=== PATIENT | female | born 1945 | race Caucasian/White ===

== ENCOUNTER 2017-12-27 13:30 | Outpatient (CLI) | payer MEDICARE | END 2017-12-27 14:10 | disposition home or self-care (01) | LOC: SLEEP 13:30 | PROVIDERS: ATTEND Family Medicine | DX: G47.10 Hypersomnia, unspecified (principal); G47.52 REM sleep behavior disorder; R06.83 Snoring ==

== ENCOUNTER → 2018-07-19 | Outpatient (CLI) | payer MEDICARE | LOC: LAB 09:54 | PROVIDERS: ATTEND Nurse Practitioner Family | DX: N83.209 Unspecified ovarian cyst, unspecified side (principal); Z78.0 Asymptomatic menopausal state | CPT/HCPCS: 36415; 86304 ==

== ENCOUNTER → 2018-07-23 | Outpatient (CLI) | payer MEDICARE ==
[~2018-07-23] MED LIST: HOLD METFORMIN - RECEIVED CONTRAST 20 ML VIAL IV SCH; IOHEXOL 350 MG/ML 100 ML (OMNIPAQUE 350) VIAL IV ONE; NS 250 ML (IVPB) BAG IV ONE
--- NOTE | 2018-07-23 10:33 | Diagnostic Imaging Report ---
PROCEDURE: CT abdomen and pelvis with and without contrast. TECHNIQUE: Precontrast acquisitions were acquired through the abdomen and pelvis. Multiple contiguous axial images were obtained through the abdomen and pelvis after the administration of intravenous contrast. Auto Exposure Controls were utilized during the CT exam to meet ALARA standards for radiation dose reduction. INDICATION: Suspicion for ovarian cysts. FINDINGS: There are multiple bilateral unilocular adnexal cysts, presumed ovarian. The largest on the left measures a long axis of 2.9 cm with the largest on the right measuring 3.5 cm. The uterus appears unremarkable. The urinary bladder is normal. There is no abdominal/pelvic ascites. No omental infiltration. No lymphadenopathy. No bowel, biliary, or urinary tract obstruction. A cyst in the right hepatic lobe at the dome posteriorly is present. The liver is otherwise unremarkable aside from a small left lobe cyst. There is no biliary ductal abnormality. The adrenals, spleen, and pancreas are all unremarkable. The aortoiliac and mesenteric vessels are patent and nonaneurysmal. The appendix is normal. No ascites, abscess, hematoma, or other fluid collection. No pneumatosis or free gas. The lung bases are nonacute. IMPRESSION: Simple appearing bilateral ovarian cysts with normal appendix and unobstructed urinary tracts. No inflammatory process or acute abnormalities. Benign hepatic cysts. Dictated by: Dictated on workstation # [id number]
== END ==
LOC: RAD 07:31
PROVIDERS: ATTEND Obstetrics & Gynecology
DX: N83.201 Unspecified ovarian cyst, right side (principal); N83.202 Unspecified ovarian cyst, left side; Z78.0 Asymptomatic menopausal state
CPT/HCPCS: 74178

== ENCOUNTER → 2018-11-01 | Outpatient (CLI) | payer MEDICARE ==
[~2018-11-01] MED LIST changes: +CATHETER FLUSH 10 ML SYR IV PRN; +NS 100 ML (IVPB) BAG IV ONE; -NS 250 ML (IVPB) BAG IV ONE
--- NOTE | 2018-11-01 09:45 | Diagnostic Imaging Report ---
PROCEDURE: CT abdomen and pelvis with and without contrast. TECHNIQUE: Precontrast acquisitions were acquired through the abdomen and pelvis. Multiple contiguous axial images were obtained through the abdomen and pelvis after the administration of intravenous contrast. Auto Exposure Controls were utilized during the CT exam to meet ALARA standards for radiation dose reduction. INDICATION: Followup ovarian cysts. COMPARISON: 07/23/2018 FINDINGS: Included portions of the lung bases are clear. CT abdomen: Benign appearing hepatic cyst is again identified within the dome of segment VII of the liver. A few other scattered similar-appearing subcentimeter foci are also noted scattered throughout the remainder of the liver, but are too small to adequately characterize. These, however, are stable compared to 07/23/2018. Benign left renal cyst is also noted. Otherwise, the kidneys, adrenal glands, spleen, and pancreas have a normal CT appearance. Small bowel loops are nondistended. Normal appendix is identified. There is no loculated fluid collection, free fluid, nor free air within the abdomen. No abnormal mesenteric or retroperitoneal adenopathy is seen. Osseous structures show no acute abnormalities. CT pelvis: Multiple bilateral ovarian cysts are identified. Largest on the right measures 2.4 x 2.6 cm. This may be slightly increased in size compared to 2.5 x 2.7 cm previously. Largest on the left measures 2.8 x 2.6 cm. This too is slightly increased in size compared to 2.6 x 2.4 cm previously. There may be a new exophytic cyst arising from the anterior margins of the left ovary as well. Potentially, the cyst may have been present previously and obscured by small bowel loops. Urinary bladder is grossly unremarkable. There is no loculated fluid collection, free fluid, nor free air within the pelvis. No abnormal lymph nodes are seen. Osseous structures show no acute abnormalities. IMPRESSION: 1. Multiple bilateral ovarian cysts as described above. In summary, dominant cyst bilaterally appears slightly increased in size and there may be a new exophytic cyst on the left. Further evaluation with pelvic sonogram is recommended, as this would provide better detail in terms of potential complexity to the cystic structures. 2. Benign-appearing left renal and hepatic cyst. A few other subcentimeter similar-appearing hepatic foci are also noted and may be on the basis of small cysts as well, but are too small to adequately characterize based on this exam. Dictated by: Dictated on workstation # [id number]
== END ==
LOC: RAD 08:25
PROVIDERS: ATTEND Obstetrics & Gynecology
DX: N83.201 Unspecified ovarian cyst, right side (principal); N83.202 Unspecified ovarian cyst, left side; N28.1 Cyst of kidney, acquired; K76.89 Other specified diseases of liver
CPT/HCPCS: 74178

== ENCOUNTER 2018-11-19 09:45 | Outpatient (CLI) | payer MEDICARE ==
[~2018-11-19] VITALS: Ht 160 cm; Wt 81.0 kg
[2018-11-19] MEDS ORDERED: DICL75TA2 PO (10:01)
[2018-11-19 10:04] VITALS: BP 116/64
[2018-11-19 11:03] LABS: BASOPHILS % (AUTO) 0 % (0-10); EOSINOPHILS # (AUTO) 0.2 10^3/uL (0.0-0.3); EOSINOPHILS % (AUTO) 5 % (0-10); HEMATOCRIT 38 % (35-52); HEMOGLOBIN 12.8 G/DL (11.5-16.0); LYMPHOCYTES # (AUTO) 1.2 X 10^3 (1.0-4.0); LYMPHOCYTES % (AUTO) 23 % (12-44); MEAN CORPUSCULAR HEMOGLOBIN 32 PG (25-34); MEAN CORPUSCULAR HGB CONC 33 G/DL (32-36); MEAN CORPUSCULAR VOLUME 94 FL (80-99); MEAN PLATELET VOLUME 10.2 FL (7.4-10.4); MONOCYTES # (AUTO) 0.4 X 10^3 (0.0-1.0); MONOCYTES % (AUTO) 9 % (0-12); NEUTROPHILS # (AUTO) 3.2 X 10^3 (1.8-7.8); NEUTROPHILS % (AUTO) 63 % (42-75); PLATELET COUNT 337 10^3/uL (130-400); RED CELL DISTRIBUTION WIDTH 12.7 % (10.0-14.5)
[2018-11-19] MEDS ORDERED: [UNRECOGNIZED DRUG - CODE] PO (11:31)
[2018-11-19] MEDS ORDERED: AMLO2.5T4 PO (11:31)
[2018-11-19] MEDS ORDERED: ALPR0.254 PO (11:31)
[2018-11-19] MEDS ORDERED: THYR15TA PO (11:31)
[2018-11-19] MEDS ORDERED: MAGN400O7 PO (11:31)
[2018-11-19] MEDS ORDERED: ATOR40TA70 PO (11:31)
[2018-11-19] MEDS ORDERED: UBID100C44 PO (11:31)
[2018-11-19] MEDS ORDERED: BENA5TAB3 PO (11:31)
[2018-11-19] MEDS ORDERED: OMEG1CAP PO (11:31)
[2018-11-19] MEDS ORDERED: ERGO400C PO (11:31)
[2018-11-19] MEDS ORDERED: ASPI-586 PO (11:31)
[2018-11-19] MEDS ORDERED: CETI10CA PO (11:31)
== END 2018-11-19 14:16 | disposition home or self-care (01) ==
LOC: PREOP 09:45
PROVIDERS: ATTEND Obstetrics & Gynecology
DX: Z01.812 Encounter for preprocedural laboratory examination (principal); N83.201 Unspecified ovarian cyst, right side; N83.202 Unspecified ovarian cyst, left side; D25.9 Leiomyoma of uterus, unspecified
CPT/HCPCS: 36415; 85025; 86850; 86900; 86901; 87081

== ENCOUNTER → 2019-05-08 | Outpatient (CLI) | payer MEDICARE ==
[~2019-05-08] MED LIST changes: +ALPR0.254 PO; +AMLO2.5T4 PO; +ASPI-586 PO; +ATOR40TA70 PO; +BENA5TAB3 PO; +CETI10CA PO; +DICL75TA2 PO; +DOCU100C37 PO; +ERGO400C PO; +HYDR-34 PO; +IBUP-844 PO; +MAGN400O7 PO; +OMEG1CAP PO; +SIME80TA16 PO; +THYR15TA PO; +UBID100C44 PO; +[UNRECOGNIZED DRUG - CODE] PO
[2019-05-08 13:14] LABS: HEMOGLOBIN 13.2 G/DL (11.5-16.0); MEAN PLATELET VOLUME 9.6 FL (7.4-10.4); RED CELL DISTRIBUTION WIDTH 13.2 % (10.0-14.5); WHITE BLOOD COUNT 10.5 10^3/uL (4.3-11.0)
[2019-05-08 13:33] LABS: ALANINE AMINOTRANSFERASE 21 U/L (0-55); ALBUMIN 4.6 GM/DL (3.2-4.5); ALKALINE PHOSPHATASE 78 U/L (40-136); BILIRUBIN,TOTAL 0.3 MG/DL (0.1-1.0); BUN/CREATININE RATIO 26; CALCIUM 10.4 MG/DL (8.5-10.1); CARBON DIOXIDE 19 MMOL/L (21-32); CHLORIDE 105 MMOL/L (98-107); CREATININE SERUM 0.88 MG/DL (0.60-1.30); GFR ESTIMATED > 60; GLUCOSE 96 MG/DL (70-105); POTASSIUM 4.5 MMOL/L (3.6-5.0); SODIUM 138 MMOL/L (135-145); TOTAL PROTEIN 8.2 GM/DL (6.4-8.2)
--- NOTE | 2019-05-08 14:31 | Diagnostic Imaging Report ---
PROCEDURE: CT chest with and without contrast. TECHNIQUE: Multiple contiguous axial images were obtained through the chest before and after administration of intravenous contrast. Auto Exposure Controls were utilized during the CT exam to meet ALARA standards for radiation dose reduction. INDICATION: Hemoptysis. COMPARISON: CT of the abdomen and pelvis dated July 23, 2018. FINDINGS: No significant adenopathy within the chest. No aneurysmal dilatation or dissection of the thoracic aorta. The heart is at the upper limits of normal in size. Small pericardial effusion. Small left pleural effusion. No significant right pleural effusion. No pneumothorax. Dense and ground-glass opacification is noted within the posterior and inferior left lower lobe. Calcified granuloma within the right upper lobe. The trachea is patent. Filling defects are identified within segmental and subsegmental branches of the left lower lobe pulmonary artery. These branches are seen coursing to the region of opacification within the inferior and posterior left lower lobe. Hepatic cysts and additional subcentimeter hepatic hypodensities are too small to completely characterize are again identified. 1 cm nodule within the left adrenal gland is again identified and unchanged since July 2018. Partially visualized upper abdomen is otherwise unremarkable. No acute osseous abnormality mild scattered osseous degenerative changes. IMPRESSION: Segmental and subsegmental pulmonary emboli within the left lower lobe. Focal consolidation within the posterior and inferior aspects of the left lower lobe. This is within the region of the pulmonary emboli. Therefore, this may relate to a developing pulmonary infarction. Infiltrate such as pneumonia felt less likely. Recommend radiographic follow-up to ensure clearance. Small left pleural effusion. Stable tiny indeterminate left adrenal gland nodule. Additional findings as above. Findings discussed with Dr. Roach at 1427 hours on May 08, 2019. Dictated by: Dictated on workstation # [id number]
== END ==
LOC: RAD 12:57
PROVIDERS: ATTEND Family Medicine
DX: I26.99 Other pulmonary embolism without acute cor pulmonale (principal); J90 Pleural effusion, not elsewhere classified; K76.89 Other specified diseases of liver; R04.2 Hemoptysis
CPT/HCPCS: 36415; 71270; 80053; 85027

== ENCOUNTER → 2019-05-09 | Outpatient (CLI) | payer MEDICARE ==
[~2019-05-09] MED LIST changes: -CATHETER FLUSH 10 ML SYR IV PRN; -HOLD METFORMIN - RECEIVED CONTRAST 20 ML VIAL IV SCH; -IOHEXOL 350 MG/ML 100 ML (OMNIPAQUE 350) VIAL IV ONE; -NS 100 ML (IVPB) BAG IV ONE
--- NOTE | 2019-05-09 15:00 | Diagnostic Imaging Report ---
PROCEDURE: US Venous Lower Ext Mati. TECHNIQUE: Multiple real-time grayscale images were obtained over the lower extremities in various projections, bilaterally. Additional duplex Doppler and color Doppler images were also obtained. INDICATION: Pulmonary embolism. FINDINGS: There is no evidence of right or left lower extremity DVT. Both lower extremity deep venous systems show normal compressibility with normal response to augmentation and Valsalva. No fluid collection or mass is detected. IMPRESSION: No evidence of right or left lower extremity DVT. Dictated by: Dictated on workstation # [id number]
== END ==
LOC: RAD 12:59
PROVIDERS: ATTEND Family Medicine
DX: I26.99 Other pulmonary embolism without acute cor pulmonale (principal)
CPT/HCPCS: 93970

== ENCOUNTER → 2019-06-19 | Outpatient (CLI) | payer MEDICARE ==
[~2019-06-19] MED LIST changes: +CATHETER FLUSH 10 ML SYR IV PRN; +HOLD METFORMIN - RECEIVED CONTRAST 20 ML VIAL IV SCH; +IOHEXOL 350 MG/ML 100 ML (OMNIPAQUE 350) VIAL IV ONE; +NS 100 ML (IVPB) BAG IV ONE
--- NOTE | 2019-06-19 10:43 | Diagnostic Imaging Report ---
PROCEDURE: CT angiography of the chest with contrast. TECHNIQUE: Multiple contiguous axial images were obtained through the chest after uneventful bolus administration of intravenous contrast. 3D reconstructed CTA MIP acquisitions were also performed. Auto Exposure Controls were utilized during the CT exam to meet ALARA standards for radiation dose reduction. INDICATION: Pulmonary emboli, follow-up exam COMPARISON: 05/08/2019 FINDINGS: No significant adenopathy within the chest. No aneurysmal dilatation or dissection of the thoracic aorta. Small pericardial effusion, similar to the prior examination. Small left pleural effusion, improved since the prior examination. No significant right pleural effusion. No pneumothorax. Calcified granuloma within the right lung. Pleural-based dense consolidation within the posterior and inferior aspect of the left lower lobe is again identified. This measures 3.9 x 0.9 cm, which has decreased in size since the prior examination. However, this now appears more dense than prior exam. On the sagittal images, this region appears wedge-shaped. The lungs are otherwise clear of focal pulmonary opacity. Previously noted filling defects within the left lower lobe pulmonary arteries appear improved though not completely resolved. In particular, persistent opacities are noted within subsegmental branches of the left lower lobe extending towards the dense consolidation. No new filling defect within the pulmonary arteries. Hepatic cysts are again identified. Subcentimeter left adrenal gland nodule is present, though not significantly changed since July 2018. No acute osseous abnormality with scattered osseous degenerative changes. IMPRESSION: Significantly improved though not completely resolved left lower lobe pulmonary emboli with residual emboli within subsegmental branches of the left lower lobe. Previously noted consolidation within the left lower lobe has decreased in size since the prior examination though appears more dense. This is felt related to a pulmonary infarction. Improved tiny left pleural effusion. Stable small pericardial effusion. Stable tiny left adrenal gland nodule. Additional stable findings as above. Dictated by: Dictated on workstation # [id number]
== END ==
LOC: RAD 08:50
PROVIDERS: ATTEND Family Medicine
DX: I26.99 Other pulmonary embolism without acute cor pulmonale (principal); J90 Pleural effusion, not elsewhere classified; E27.9 Disorder of adrenal gland, unspecified
CPT/HCPCS: 71275

== ENCOUNTER → 2019-10-27 | Outpatient (CLI) | payer MEDICARE ==
[~2019-10-27] MED LIST changes: -CATHETER FLUSH 10 ML SYR IV PRN
[2019-10-27 09:08] LABS: BUN/CREATININE RATIO 30; CREATININE SERUM 0.83 MG/DL (0.60-1.30); GFR ESTIMATED > 60
--- NOTE | 2019-10-27 11:13 | Diagnostic Imaging Report ---
PROCEDURE: CT chest with and without contrast. TECHNIQUE: Multiple contiguous axial images were obtained through the chest before and after administration of intravenous contrast. Auto Exposure Controls were utilized during the CT exam to meet ALARA standards for radiation dose reduction. INDICATION: Pulmonary embolism, follow-up. COMPARISON: Correlation is made with prior CT chest from 06/19/2019. FINDINGS: No axillary lymphadenopathy is detected. No definite mediastinal or hilar lymphadenopathy is identified. Trace pericardial fluid is present. No pleural effusion is identified. Evaluation of the pulmonary arterial system is somewhat limited due to non-CT angiography protocol. This does limit evaluation of the more peripheral pulmonary arteries. The central pulmonary arteries including a central, lobar and segmental branches appear to be patent. There may be some persistent emboli within the very small branches to the left lower lobe medially, previously seen. This is present within very small pulmonary artery branches in the medial aspect of the right lower lobe as well. The area of parenchymal consolidation and probable pulmonary infarct involving the posterior left lower lobe has significantly improved. This area now measures approximately 2.1 x 1.2 cm compared with 3.9 x 0.9 cm. No new parenchymal abnormality is detected. Upper abdomen does show some low densities within the liver which are stable and suggestive of cysts. IMPRESSION: Limited study for the evaluation of the pulmonary arterial system due to non-CT angiography protocol. No central or lobar thromboembolism is seen. There may be some continued emboli within very small pulmonary arterial branches in the lower lobes bilaterally. However, area of probable pulmonary infarct in the left lower lobe medially has significantly decreased in size. No new abnormality is detected. Dictated by: Dictated on workstation # [id number]
== END ==
LOC: RAD 09:15
PROVIDERS: ATTEND Nurse Practitioner Family
DX: I26.99 Other pulmonary embolism without acute cor pulmonale (principal)
CPT/HCPCS: 36415; 71270; 82565; 84520

== ENCOUNTER → 2020-01-08 | Outpatient (CLI) | payer MEDICARE ==
[~2020-01-08] MED LIST changes: +ALPR.25T PO; -ALPR0.254 PO; -HOLD METFORMIN - RECEIVED CONTRAST 20 ML VIAL IV SCH; -IOHEXOL 350 MG/ML 100 ML (OMNIPAQUE 350) VIAL IV ONE; -NS 100 ML (IVPB) BAG IV ONE
--- NOTE | 2020-01-08 13:07 | Diagnostic Imaging Report ---
INDICATION: Bilateral hip pain. TIME OF EXAM: 10:56 AM. TECHNIQUE: An AP view of the pelvis and multiple views of the bilateral hips were obtained. FINDINGS: The femoroacetabular alignment is normal bilaterally. There is significant osteoarthritic change to the right hip with complete loss of the superior joint space. The right femoral head and neck are intact. The left hip shows only mild superior joint space narrowing. The femoral head and neck are intact. There is a large dystrophic calcification projected just cephalad to the greater trochanter on the left. No fractures are seen. The rami are intact. IMPRESSION: Significant osteoarthritic change of the right hip. No acute bony abnormality is detected. Dictated by: Dictated on workstation # [id number]
== END ==
LOC: RAD 10:38
PROVIDERS: ATTEND Family Medicine
DX: M25.552 Pain in left hip (principal); M16.11 Unilateral primary osteoarthritis, right hip
CPT/HCPCS: 73523

== ENCOUNTER 2020-04-07 05:39 | Outpatient (RCR) | payer MEDICARE ==
[~2020-04-07] VITALS: Ht 158 cm; Wt 81.8 kg
[~2020-04-07 05:39] MED LIST changes: +ASPI-999 PO; +CHOL10002 PO; +CYAN25006 SL; +CYCL1DRO OU; +LEVO25CA4 PO; +MULT-1029 PO; +RIVA20TA PO; +SPIR25TA5 PO
== END 2020-04-07 14:00 | disposition home or self-care (01) ==
LOC: PREOP 05:39
PROVIDERS: ATTEND Specialist
DX: Z01.812 Encounter for preprocedural laboratory examination (principal); H25.12 Age-related nuclear cataract, left eye; Z20.822 Contact with and (suspected) exposure to COVID-19
CPT/HCPCS: 87635

== ENCOUNTER 2020-04-09 06:15 | Day surgery (SDC) | payer MEDICARE ==
[~2020-04-09] VITALS: Ht 158 cm; Wt 81.0 kg
[2020-04-09] MEDS ORDERED: LIDOCAINE PF 1% 2 ML VIAL IR PRN (06:30)
[2020-04-09] MEDS ORDERED: MOXIFLOXACIN OPHTH SOLN 5 MG/ML 0.3 ML SYRINGE OP ONE (06:30)
[2020-04-09] MEDS ORDERED: POVIDONE (BETADINE) OPHTH SOLN 5% 30 ML OP ONE (06:30)
[2020-04-09] MEDS ORDERED: TIMOLOL MALEATE 0.5% 5 ML (TIMOPTIC) BTL OU PRN (06:30)
[2020-04-09 06:37] VITALS: BP 134/71
[2020-04-09] MEDS: TETRACAINE 0.5% OPHTH SOLN 4 ML BTL (SINGLE DOSE ONLY) OU PRN ×4 (06:46→07:00)
[2020-04-09] MEDS ORDERED: MIDAZOLAM 2 MG/2 ML (VERSED) VIAL ONE (06:47)
[2020-04-09] MEDS: PHENYLEPHRINE 10% OPHTH (NEO-SYN) 5 ML BTL OU SCH ×3 (06:54→07:07)
[2020-04-09] MEDS: TROPICAMIDE 1% OPH SOLN (MYDRIACYL) 15 ML BTL OP SCH ×3 (06:55→07:07)
--- NOTE | 2020-04-09 07:22 | Ophthalmologist Pre-Op Note ---
Pre-Operative Progress Note H&P Reviewed The H&P was reviewed, patient examined and no changes noted. Date H&P Reviewed: Apr 09, 2020 Time H&P Reviewed: 07:22 Pre-Op Dx Cataract, Left Eye LAURA CERNA MD Apr 09, 2020 07:22
[2020-04-09] MEDS ORDERED: acetaZOLAMIDE ER 500 MG CAP (DIAMOX SEQUELS) PO ONE (07:30)
--- NOTE | 2020-04-09 07:45 | Ophthalmology Operative Report ---
Cataract removal/placement IOL PREOPERATIVE DIAGNOSIS: Cataract Left Eye POSTOPERATIVE DIAGNOSIS: Cataract Left Eye PROCEDURE: Cataract removal and placement of posterior chamber implant, left eye SURGEON: Kamlesh Cerna ANESTHESIA: Topical with sedation COMPLICATIONS: None ESTIMATED BLOOD LOSS: Minimal DESCRIPTION OF PROCEDURE: After proper informed consent was obtained, the patient, a 74 female, was taken to the Operating Room and the left eye was anesthetized with tetracaine. The left eye was then prepped and draped in the usual manner. A wire lid speculum was placed. A paracentesis was made at the left hand position. Preservative free lidocaine was injected into the anterior chamber followed by viscoelastic. A clear corneal incision was made in the temporal position. A capsulorrhexis was preformed and the central nuclear and cortical material were removed. The posterior capsule was polished and an Viral 16.5 AU00T0 was placed into the capsular bag. The residual viscoelastic was aspirated and balanced saline solution was injected into the anterior chamber. Moxifloxacin was injected into the anterior chamber. The wound was checked and found to be water tight. The patient tolerated the procedure well without complications. KAMLESH CERNA MD Apr 09, 2020 07:45
[2020-04-09 07:55] VITALS: BP 128/87
--- NOTE | 2020-04-09 10:54 | Anesthesia-General Post-Op ---
MAC Patient Condition Mental Status/LOC: Same as Preop Cardiovascular: Satisfactory Nausea/Vomiting: Absent Respiratory: Satisfactory Pain: Controlled Complications: Absent Post Op Complications Complications None Follow Up Care/Instructions Patient Instructions None needed. Anesthesiology Discharge Order Discharge Order Patient is doing well, no complaints, stable vital signs, no apparent adverse anesthesia problems. No complications reported per nursing. JUAN C HUNTLEY CRNA Apr 09, 2020 10:54
== END 2020-04-09 07:55 | disposition home or self-care (01) ==
LOC: SDC 06:15
PROVIDERS: ATTEND Specialist
DX: H25.12 Age-related nuclear cataract, left eye (principal); I10 Essential (primary) hypertension; G47.33 Obstructive sleep apnea (adult) (pediatric); F41.9 Anxiety disorder, unspecified; K21.9 Gastro-esophageal reflux disease without esophagitis; E03.9 Hypothyroidism, unspecified; Z79.899 Other long term (current) drug therapy
CPT/HCPCS: 66984; V2632

== ENCOUNTER 2020-04-21 05:40 | Outpatient (RCR) | payer MEDICARE | END 2020-04-21 09:33 | disposition home or self-care (01) | LOC: PREOP 05:40 | PROVIDERS: ATTEND Specialist | DX: Z01.812 Encounter for preprocedural laboratory examination (principal); H25.11 Age-related nuclear cataract, right eye; Z20.822 Contact with and (suspected) exposure to COVID-19 | CPT/HCPCS: 87635 ==

== ENCOUNTER 2020-04-23 06:16 | Day surgery (SDC) | payer MEDICARE ==
[~2020-04-23] VITALS: Ht 158 cm; Wt 81.0 kg
[2020-04-23] MEDS: TETRACAINE 0.5% OPHTH SOLN 4 ML BTL (SINGLE DOSE ONLY) OU PRN ×4 (06:28→06:47)
[2020-04-23] MEDS ORDERED: MOXIFLOXACIN OPHTH SOLN 5 MG/ML 0.3 ML SYRINGE OP ONE (06:30)
[2020-04-23] MEDS ORDERED: POVIDONE (BETADINE) OPHTH SOLN 5% 30 ML OP ONE (06:30)
[2020-04-23] MEDS ORDERED: TIMOLOL MALEATE 0.5% 5 ML (TIMOPTIC) BTL OU PRN (06:30)
[2020-04-23] MEDS ORDERED: LIDOCAINE PF 1% 2 ML VIAL IR PRN (06:30)
[2020-04-23] MEDS: PHENYLEPHRINE 10% OPHTH (NEO-SYN) 5 ML BTL OU SCH ×3 (06:35→06:47)
[2020-04-23] MEDS: TROPICAMIDE 1% OPH SOLN (MYDRIACYL) 15 ML BTL OP SCH ×3 (06:35→06:47)
[2020-04-23 06:39] VITALS: BP 126/67
--- NOTE | 2020-04-23 06:53 | Ophthalmologist Pre-Op Note ---
Pre-Operative Progress Note H&P Reviewed The H&P was reviewed, patient examined and no changes noted. Date H&P Reviewed: Apr 23, 2020 Time H&P Reviewed: 06:53 Pre-Op Dx Cataract, Right Eye LAURA CERNA MD Apr 23, 2020 06:53
[2020-04-23] MEDS ORDERED: MIDAZOLAM 2 MG/2 ML (VERSED) VIAL ONE (06:59)
--- NOTE | 2020-04-23 07:26 | Ophthalmology Operative Report ---
Cataract removal/placement IOL PREOPERATIVE DIAGNOSIS: Cataract Right Eye POSTOPERATIVE DIAGNOSIS: Cataract Right Eye PROCEDURE: Cataract removal and placement of posterior chamber implant, right eye SURGEON: Kamlesh Cerna ANESTHESIA: Topical with sedation COMPLICATIONS: None ESTIMATED BLOOD LOSS: Minimal DESCRIPTION OF PROCEDURE: After proper informed consent was obtained, the patient, a 74 female, was taken to the Operating Room and the right eye was anesthetized with tetracaine. The right eye was then prepped and draped in the usual manner. A wire lid speculum was placed. A paracentesis was made at the left hand position. Preservative free lidocaine was injected into the anterior chamber followed by viscoelastic. A clear corneal incision was made in the temporal position. A capsulorrhexis was preformed and the central nuclear and cortical material were removed. The posterior capsule was polished and Viral 16.5 AU00T0 IOL was placed into the capsular bag. The residual viscoelastic was aspirated and balanced saline solution was injected into the anterior chamber. Moxifloxacin was injected into the anterior chamber. The wound was checked and found to be water tight. The patient tolerated the procedure well without complications. KAMLESH CERNA MD Apr 23, 2020 07:26
[2020-04-23 07:30] VITALS: BP 105/69
[2020-04-23] MEDS ORDERED: acetaZOLAMIDE ER 500 MG CAP (DIAMOX SEQUELS) PO ONE (07:30)
--- NOTE | 2020-04-23 15:02 | Anesthesia-General Post-Op ---
MAC Patient Condition Mental Status/LOC: Same as Preop Cardiovascular: Satisfactory Nausea/Vomiting: Absent Respiratory: Satisfactory Pain: Controlled Complications: Absent Post Op Complications Complications None Follow Up Care/Instructions Patient Instructions None needed. Anesthesiology Discharge Order Discharge Order Patient was seen this morning after the procedure and she was doing well, no complaints, stable vital signs, no apparent adverse anesthesia problems. JUAREZ BRANTLEY DO Apr 23, 2020 15:02
== END 2020-04-23 07:40 ==
LOC: SDC 06:16
PROVIDERS: ATTEND Specialist
DX: H25.11 Age-related nuclear cataract, right eye (principal); I10 Essential (primary) hypertension; G47.33 Obstructive sleep apnea (adult) (pediatric); F41.9 Anxiety disorder, unspecified; E03.9 Hypothyroidism, unspecified; M19.90 Unspecified osteoarthritis, unspecified site; E78.00 Pure hypercholesterolemia, unspecified; Z79.899 Other long term (current) drug therapy; Z87.891 Personal history of nicotine dependence; Z90.710 Acquired absence of both cervix and uterus
CPT/HCPCS: 66984; V2632

== ENCOUNTER → 2020-10-18 | Outpatient (CLI) | payer MEDICARE ==
[~2020-10-18] MED LIST changes: +CHOL-34 PO; -CHOL10002 PO
== END ==
LOC: LABNPT 07:03
PROVIDERS: ATTEND Orthopaedic Surgery
DX: Z01.812 Encounter for preprocedural laboratory examination (principal); Z20.822 Contact with and (suspected) exposure to COVID-19
CPT/HCPCS: 87635

== ENCOUNTER → 2022-10-25 | Outpatient (CLI) | payer MEDICARE ==
[~2022-10-25] MED LIST changes: -BENA5TAB3 PO; +BENA5TAB36 PO
== END ==
LOC: CARD 14:54
PROVIDERS: ATTEND Family Medicine
DX: I49.9 Cardiac arrhythmia, unspecified (principal); I10 Essential (primary) hypertension
CPT/HCPCS: 93005

== ENCOUNTER → 2022-11-09 | Outpatient (CLI) | payer MEDICARE | LOC: CARD 13:13 | PROVIDERS: ATTEND Internal Medicine Cardiovascular Disease | DX: I11.9 Hypertensive heart disease without heart failure (principal); I34.0 Nonrheumatic mitral (valve) insufficiency; I31.39 Other pericardial effusion (noninflammatory); I25.10 Atherosclerotic heart disease of native coronary artery without angina pectoris | CPT/HCPCS: 93306 ==